=== PATIENT | female | born 1985 | race Caucasian/White ===

== ENCOUNTER 2016-09-08 15:12 | Emergency (ER) | payer OTHER, MEDICAID ==
[~2016-09-08] VITALS: Ht 190.5 cm; Wt 115.0 kg
[~2016-09-08 15:12] MED LIST: BACT800T5 PO
[2016-09-08 15:14] VITALS: BP 132/83; PULSE 114; RESP 20; TEMP 97.7; O2SAT 97
--- NOTE | 2016-09-08 15:56 | PD ---
HPI Chief Complaint: Pain: Acute or Chronic Time Seen by Provider: 15:55 Travel History International Travel<30 days: No Contact w/Intl Traveler<30days: No Traveled to known affect area: No History of Present Illness HPI 31-year-old female presents to the emergency department complaining of left knee pain 3 days. Denies injury. Has been ambulatory on the affected extremity. Denies paresthesias, loss of sensation, decreased range of motion, decreased strength to the affected extremity. Says her left knee looks more swollen than the right knee. Denies Fever, vomiting. Has been taking Tylenol and her prescribed pain medications with minimal relief of pain. Pain is worse with bearing weight. Has no other medical complaints. No other modified factors or associated signs and symptoms. PFSH Past Medical History Hx Anticoagulant Therapy: No Bipolar Disorder: Yes Anxiety: Yes (PANIC ATTACKS) Cardiovascular Problems: No High Cholesterol: Yes Chemotherapy: No Cerebrovascular Accident: No Diabetes: No Diminished Hearing: No Musculoskeletal: Yes (CHRONIC LOW BACK PAIN) Reproductive: Yes (HX IUD) Respiratory: No Immunizations Current: Yes Sleep Apnea: Yes (cpap ( NOT ANYMORE REPORTED ON 08/04/15)) ?: Not LMP: 08/30/16 : 4 Para: 2 Miscarriage: 2 Past Surgical History Ear Surgery: Yes (BILATERAL TUBES A CHILD) Hysterectomy: No Oral Surgery: Yes Social History Alcohol Use: No Tobacco Use: Yes (5 CIG PER DAY) Substance Use: No Allergies-Medications (Allergen,Severity, Reaction): Coded Allergies: Macrodantin (Verified Allergy, Severe, SWELLING AND HIVES, 01/31/16) Naproxen (Verified Allergy, Severe, Anaphylaxis, rash, 01/31/16) Nitrofurantoin (Verified Allergy, Intermediate, RASH, HIVES, SWELLING, ) Adhesives (Verified Allergy, Mild, 01/31/16) Uncoded Allergies: MICROBAN (Allergy, Mild, 12/15/08) Reported Meds & Prescriptions Reported Meds & Active Scripts Active No Active Prescriptions or Reported Medications Review of Systems Except as stated in HPI: all other systems reviewed are Neg Physical Exam Narrative GENERAL: Well-nourished, well-developed female patient, in no acute distress; afebrile, nontoxic-appearing SKIN: Warm and dry. HEAD: Atraumatic. Normocephalic. EYES: Pupils equal and round. No scleral icterus. No injection or drainage. ENT: Mucosa pink and moist. Airway patent. NECK: Trachea midline. CARDIOVASCULAR: Regular rate. RESPIRATORY: No accessory muscle use. GASTROINTESTINAL: Obese. MUSCULOSKELETAL: Left nonedematous, nonerythematous, and without ecchymosis; full range of motion and flexion to 90; point tenderness to the medial, lateral , posterior, and anterior below the patella aspect; joint stable with negative drawer test; no obvious deformity. Left Lower extremity is supple and non- tense with 2+ pedal pulse and sensory intact and without erythema or edema. No obvious deformities. No edema. No cyanosis. NEUROLOGICAL: Awake and alert. Oriented 3. No obvious cranial nerve deficits. Motor grossly within normal limits. Normal speech. PSYCHIATRIC: Appropriate mood and affect; insight and judgment normal. Data Data Last Documented VS Vital Signs Date Time Temp Pulse Resp B/P Pulse Ox O2 Delivery O2 Flow Rate FiO2 09/08/16 15:14 97.7 114 20 132/83 97 Room Air Orders Crutches (09/08/16 15:56) MDM Medical Decision Making Medical Screen Exam Complete: Yes Emergency Medical Condition: Yes Medical Record Reviewed: Yes Differential Diagnosis Nonspecific Knee pain, arthritis, bursitis, knee strain Narrative Course 31-year-old female with left knee pain. Denies injury. I do not suspect fracture or dislocation. Imaging is not necessary at this time. Lance bandage and Crutches provided for support. Patient has pain medication at home. Inflammation to the [facility] provided to the patient. Patient verbalizes understanding and agreement with treatment plan. Patient is medically cleared and stable for discharge. Discussed reasons to return to the emergency department. Instructed patient to follow up with primary care provider. Patient agrees with treatment plan. The patients vital signs are stable and the patient is stable for outpatient follow-up and treatment. Patient discharged home, stable and in no acute distress. Diagnosis Primary Impression: Left knee pain Qualified Code: M25.562 - Left knee pain, unspecified chronicity Referrals: Primary Care Physician Patient Instructions: General Instructions, Knee Pain (ED) Additional Instructions: Tylenol or ibuprofen as needed and as directed to reduce pain and inflammation Rest, ice, compress, and elevate extremity to decrease pain and inflammation Knee brace for support Crutches for support Avoid aggravating activity; increase activity as tolerated Follow-up with primary care provider Follow-up with orthopedics Return to the emergency department immediately with worsening symptoms Med/Other Pt SpecificInfo: No Change to Meds, No Meds Exist/No RX given Scripts No Active Prescriptions or Reported Meds Disposition: 01 DISCHARGE HOME Condition: Stable Alee Campa September 08, 2016 15:56
== END 2016-09-08 16:22 | disposition home or self-care (01) ==
LOC: NEPK 15:12
DX: M25.562 Pain in left knee (principal)
CPT/HCPCS: 99282; E0113

== ENCOUNTER 2017-05-13 12:13 | Emergency (ER) | payer OTHER ==
[~2017-05-13] VITALS: Ht 190.5 cm; Wt 119.0 kg
[2017-05-13 12:35] VITALS: BP 132/68; PULSE 86; RESP 16; TEMP 98.4; O2SAT 98
== END 2017-05-13 13:13 | disposition left against medical advice (07) ==
LOC: PHED 12:13
DX: R51 Headache (principal)
CPT/HCPCS: 99281

== ENCOUNTER 2017-07-25 07:55 | Emergency (ER) | payer OTHER, BC ==
[2017-07-25 07:59] VITALS: BP 137/83; PULSE 93; RESP 16; TEMP 98.8; O2SAT 99
[2017-07-25] MEDS ORDERED: lortab PO (08:07)
[2017-07-25] MEDS ORDERED: DOXE25CA2 PO (08:07)
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
[2017-07-25] MEDS ORDERED: BACL10TA PO (09:38)
[2017-07-26] MEDS ORDERED: HYDR-3583 PO (10:42)
== END 2017-07-25 09:59 | disposition home or self-care (01) ==
LOC: NEPD 07:55
DX: S16.1XXA Strain of muscle, fascia and tendon at neck level, initial encounter (principal); S46.912A Strain of unspecified muscle, fascia and tendon at shoulder and upper arm level, left arm, initial encounter; V43.52XA Car driver injured in collision with other type car in traffic accident, initial encounter
CPT/HCPCS: 72125; 73030; 99284